=== PATIENT | female | born 1965 ===

== ENCOUNTER 2016-05-20 16:35 | Emergency (ER) | payer OTHER ==
--- NOTE | 2016-05-20 20:53 | DIAGNOSTIC IMAGING REPORT ---
PROCEDURE: XR CHEST 2 VIEW INDICATION: FEVER, initial encounter TECHNIQUE: PA and lateral view. COMPARISON: Chest x-ray 12/21/2015 FINDINGS: Lungs are clear. Cardiovascular structures are normal. Bony thorax is unremarkable. No significant interval change. IMPRESSION: 1. Negative chest.
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
--- NOTE | 2016-05-20 21:25 | ED ORDER SUMMARY ---
..... Patient: ARCADIO ARECHIGA OrderSheet [facility] VisitID: [id number] [place] [address] 50y, F Registration Date/Time: 05/20/2016 ORDER SHEET Weight: 79.3 kg (stated) Allergies: No Known Drug Allergy GENERAL ORDERS: Chest 2V Urgent (20:18 05/20/2016 Ameya TERRELL) (20:41 Anabella) Rapid Influenza Screen (Nasal Pharyngeal) (swab) Urgent (20:19 05/20/2016 Ameya TERRELL) (Ack 20:47 CHagerty ER Electronic Imager) (20:50 ALawrence ER Tech1) Culture, Strep Screen Urgent (20:19 05/20/2016 Ameya TERRELL) (Ack 20:47 CHagTimetric ER Electronic Imager) (20:49 ALawrence ER Tech1) MEDICATION ORDERS: IV FLUIDS: ORDER SHEET NOTES: [Electronically signed by Eduardo Jones R.N. (21:45 05/20/2016)] [Electronically signed by Silas Limon MD (23:07 05/22/2016)] [Electronically locked/signed by Eduardo Jones R.N. (21:45 05/20/2016)]
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
--- NOTE | 2016-05-20 21:25 | ED ORDER SUMMARY ---
..... Patient: ARCADIO ARECHIGA OrderSheet [facility] VisitID: [id number] [place] [address] 50y, F Registration Date/Time: 05/20/2016 ORDER SHEET Weight: 79.3 kg (stated) Allergies: No Known Drug Allergy GENERAL ORDERS: Chest 2V Urgent (20:18 05/20/2016 Ameya TERRELL) (20:41 Anabella) Rapid Influenza Screen (Nasal Pharyngeal) (swab) Urgent (20:19 05/20/2016 Ameya TERRELL) (Ack 20:47 CHagerty ER Licensed Weigher) (20:50 ALawrence ER Tech1) Culture, Strep Screen Urgent (20:19 05/20/2016 Ameya TERRELL) (Ack 20:47 CHagReturbo ER Licensed Weigher) (20:49 ALawrence ER Tech1) MEDICATION ORDERS: IV FLUIDS: ORDER SHEET NOTES: [Electronically signed by Eduardo Jones R.N. (21:45 05/20/2016)] [Electronically signed by Silas Limon MD (23:07 05/22/2016)] [Electronically locked/signed by Eduardo Jones R.N. (21:45 05/20/2016)]
--- NOTE | 2016-05-22 23:08 | ED MED RECONCILIATION SUMMARY ---
Patient: ARCADIO ARECHIGA Medication Reconciliation Report [facility] VisitID: [id number] [address] [place] [address] 50y, F Registration Date/Time: 05/20/2016 Weight: 79.3 kg Height/Length: 66 in. BMI: 28.2 ALLERGIES: No Known Drug Allergy The patient's Home Medications are listed below: THE FOLLOWING MEDICATIONS NEED TO BE RECONCILED: Trazadone, has not started taking yet Wellbutrin Oral The source(s) of the original Home Medication information: Not obtained. The following Medications were given to the patient in the Emergency Department: None. The following Medications were prescribed to the patient: Albuterol HFA oral inhaler: inhale 1-2 puffs every 4 hours as needed. Dispense one (1) unit.(PRN COUGH) -- Silas Limon MD
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
--- NOTE | 2016-05-22 23:08 | ED MAR SUMMARY ---
..... Medication Administration Record [facility] [address] [place] [place], [place] [id number] Patient: ARCADIO ARECHIGA Visit ID: [id number] 50y, F Weight: 79.3 kg Height/Length: 66 in BMI: 28.2 ALLERGIES: No Known Drug Allergy
--- NOTE | 2016-05-22 23:08 | ED MED RECONCILIATION SUMMARY ---
Patient: ARCADIO ARECHIGA Medication Reconciliation Report [facility] VisitID: [id number] [address] [place] [address] 50y, F Registration Date/Time: 05/20/2016 Weight: 79.3 kg Height/Length: 66 in. BMI: 28.2 ALLERGIES: No Known Drug Allergy The patient's Home Medications are listed below: THE FOLLOWING MEDICATIONS NEED TO BE RECONCILED: Trazadone, has not started taking yet Wellbutrin Oral The source(s) of the original Home Medication information: Not obtained. The following Medications were given to the patient in the Emergency Department: None. The following Medications were prescribed to the patient: Albuterol HFA oral inhaler: inhale 1-2 puffs every 4 hours as needed. Dispense one (1) unit.(PRN COUGH) -- Silas Limon MD
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
--- NOTE | 2016-05-22 23:08 | ED MAR SUMMARY ---
..... Medication Administration Record [facility] [address] [place], [place] [id number] Patient: ARCADIO ARECHIGA Visit ID: [id number] 50y, F Weight: 79.3 kg Height/Length: 66 in BMI: 28.2 ALLERGIES: No Known Drug Allergy
== END 2016-05-20 21:45 | disposition home or self-care (01) ==
LOC: ED SRH 16:35
DX: J20.8 Acute bronchitis due to other specified organisms (principal); S20.219A Contusion of unspecified front wall of thorax, initial encounter; V89.2XXA Person injured in unspecified motor-vehicle accident, traffic, initial encounter; Y93.89 Activity, other specified; Y92.410 Unspecified street and highway as the place of occurrence of the external cause; Y99.8 Other external cause status
CPT/HCPCS: 90154; 90159; 91400